=== PATIENT | male | born 1975 | race African-American/Black ===

== ENCOUNTER 2016-12-13 03:47 | Emergency (ER) | payer BC ==
[~2016-12-13] VITALS: Ht 180.3 cm; Wt 91.5 kg
[~2016-12-13 03:47] MED LIST: DILAUDID2 MG PO; FLEXERIL10 MG PO; MOBIC15 MG PO; MOTRIN800 MG PO; TESSALON200 MG PO; ZITHROMAX Z-PA250 MG PO
[2016-12-13] MEDS ORDERED: FLEXERIL10 MG PO (05:20)
[2016-12-13 05:27] VITALS: BP 144/93
== END 2016-12-13 05:28 | disposition home or self-care (01) ==
LOC: EME 03:47
DX: S29.012A Strain of muscle and tendon of back wall of thorax, initial encounter (principal); X58.XXXA Exposure to other specified factors, initial encounter; F17.200 Nicotine dependence, unspecified, uncomplicated
CPT/HCPCS: 99281; 99284

== ENCOUNTER 2017-05-14 01:43 | Emergency (ER) | payer BC ==
[~2017-05-14] VITALS: Ht 180.3 cm; Wt 90.2 kg
[2017-05-14] MEDS ORDERED: AMLODIPINE-VAL1 EACH PO (02:02)
[2017-05-14] MEDS ORDERED: PROVENTIL,VENTOL2 MG PO (02:03)
[2017-05-14] MEDS ORDERED: ZITHROMAX Z-PA250 MG PO (02:32)
[2017-05-14] MEDS ORDERED: DELTASONE20 M1 PO (02:32)
[2017-05-14] MEDS ORDERED: PROAIR HFA8.5 GM IH (02:34)
[2017-05-14 03:20] VITALS: BP 145/92
== END 2017-05-14 03:20 | disposition home or self-care (01) ==
LOC: EME 01:43
DX: J06.9 Acute upper respiratory infection, unspecified (principal); J45.21 Mild intermittent asthma with (acute) exacerbation; I10 Essential (primary) hypertension; F17.200 Nicotine dependence, unspecified, uncomplicated
CPT/HCPCS: 71020; 94640; 99281; 99284; J0696; J7512

== ENCOUNTER 2018-01-24 | Emergency (ER) | payer BC ==
[~2018-01-24] VITALS: Ht 182.9 cm; Wt 92.5 kg
[~2018-01-24] MED LIST changes: +AMLODIPINE-VAL1 EACH PO; +DELTASONE20 M1 PO; +PROAIR HFA8.5 GM IH; +PROVENTIL,VENTOL2 MG PO
[2018-01-24 02:13] VITALS: BP 139/84
== END 2018-01-24 02:13 | disposition home or self-care (01) ==
LOC: EME
DX: S61.511A Laceration without foreign body of right wrist, initial encounter (principal); W25.XXXA Contact with sharp glass, initial encounter; Z23 Encounter for immunization; F17.200 Nicotine dependence, unspecified, uncomplicated
CPT/HCPCS: 73110; 99281; 99284